=== PATIENT | female | born 1975 | race Caucasian/White ===

== ENCOUNTER 2023-02-08 17:52 | Emergency (ER) | payer MEDICAID ==
[~2023-02-08] VITALS: Ht 167.6 cm; Wt 79.0 kg
[2023-02-08 18:14] VITALS: BP 151/91; PULSE 101; RESP 20; TEMP 98.7; O2SAT 100
== END 2023-02-08 19:08 | disposition home or self-care (01) ==
LOC: ER 17:52
DX: S80.862A Insect bite (nonvenomous), left lower leg, initial encounter (principal); W57.XXXA Bitten or stung by nonvenomous insect and other nonvenomous arthropods, initial encounter; Y93.89 Activity, other specified; Y92.89 Other specified places as the place of occurrence of the external cause; Y99.8 Other external cause status
CPT/HCPCS: 99281

== ENCOUNTER 2024-02-21 04:01 | Emergency (ER) | payer MEDICAID, OTHER ==
[~2024-02-21] VITALS: Ht 180.3 cm; Wt 85.0 kg
[2024-02-21 04:02] VITALS: O2SAT 98
[2024-02-21 08:32] VITALS: BP 133/80; PULSE 79; RESP 16; TEMP 36.72516; O2SAT 98
== END 2024-02-21 08:57 | disposition left against medical advice (07) ==
LOC: ER 04:01
DX: R11.2 Nausea with vomiting, unspecified (principal); Z53.21 Procedure and treatment not carried out due to patient leaving prior to being seen by health care provider

== ENCOUNTER → 2024-03-05 | Emergency (ER) | payer MEDICAID, OTHER ==
[~2024-03-05] VITALS: Ht 165.1 cm; Wt 79.0 kg
[~2024-03-05] MED LIST: LOSA1TAB34 MT
[2024-03-05 01:04] VITALS: TEMP 98.3; O2SAT 100
[2024-03-05] MEDS: ACETAMINOPHEN 325MG TABLET PO ONE (03:20)
[2024-03-05] MEDS: NIFEDIPINE 10MG CAPSULE PO ONE (03:20)
[2024-03-05 06:30] VITALS: BP 126/84; PULSE 73; RESP 17; O2SAT 100
== END ==
LOC: ER 01:07
DX: I10 Essential (primary) hypertension (principal)
CPT/HCPCS: 99283

== ENCOUNTER 2025-02-07 16:32 | Emergency (ER) | payer OTHER ==
[~2025-02-07] VITALS: Ht 165.1 cm; Wt 72.0 kg
[2025-02-07 16:46] VITALS: O2SAT 97
[2025-02-07] MEDS ORDERED: BO1 TP (18:32)
[2025-02-07 18:50] VITALS: BP 130/92; PULSE 92; RESP 20; TEMP 36.8; O2SAT 97
== END 2025-02-07 18:52 | disposition home or self-care (01) ==
LOC: ER 16:32
DX: L02.212 Cutaneous abscess of back [any part, except buttock and flank] (principal); I10 Essential (primary) hypertension; Z79.899 Other long term (current) drug therapy
CPT/HCPCS: 99282